=== PATIENT | female | born 2000 ===

== ENCOUNTER 2019-07-14 00:33 | Inpatient (IN) ==
[2019-07-14] MEDS ORDERED: ONDANSETRON 4 MG/2 ML VIAL IV PRN ×2 (00:49→17:47)
[2019-07-14] MEDS ORDERED: LACTATED RINGERS 500 ML IV PRN (00:49)
[2019-07-14] MEDS: LACTATED RINGERS 1,000 ML IV SCH ×3 (01:01→13:22)
[2019-07-14 01:08] LABS: Basophils % 0.2 % (0.0-0.8); Hemoglobin 13.2 GM/DL (12.0-16.0); Immature Granulocytes % 0.5 %; Immature Granulocytes Absolute 0.03 #; Lymphocytes # 1.9 10*3/uL (1.4-4.0); Lymphocytes % 32.2 % (21.3-54.2); Mean Corpuscular Volume 85.5 FL (87-102); Mean Platelet Volume 9.8 FL (9.6-12.0); Monocytes % 8.9 % (1.7-12.7); Neutrophils % 58.2 % (38.7-73.9); Platelet Count 257 T/CUMM (130-400); Red Blood Count 4.68 MC/CUMM (3.8-5.5); Red Cell Distribution Width 13.8 % (9.3-17.3); White Blood Count 5.9 T/CUMM (4-12)
[2019-07-14 01:31] LABS: Alanine Aminotransferase 14 U/L (13-56); Albumin 2.2 G/DL (3.4-5.0); Alkaline Phosphatase 189 U/L (45-117); Aspartate Amino Transferase 26 U/L (0-37); Bilirubin,Total < 0.39 MG/DL (0.2-1.0); Blood Urea Nitrogen 4 MG/DL (7-18); Calcium 8.7 MG/DL (8.5-10.1); Estimated Glom Filtration Rate 140 ML/MIN; Glucose 91 MG/DL (74-106); Total Protein 7.1 G/DL (6.4-8.3)
[2019-07-14] MEDS: BUTORPHANOL 2 MG/ML VIAL IV PRN ×2 (02:11→05:43)
[2019-07-14] MEDS ORDERED: AMPICILLIN 2,000 MG VIAL ONE (03:11)
[2019-07-14] MEDS ORDERED: AMPICILLIN INJ 2,000 MG in SODIUM CHLORIDE 0.9% 100 ML IV ONE (03:30)
[2019-07-14] MEDS: AMPICILLIN INJ 1,000 MG in SODIUM CHLORIDE 0.9% 100 ML IV SCH ×2 (07:45→12:11)
[2019-07-14] MEDS ORDERED: OXYTOCIN/LR 20 UNIT/1,000 ML BAG IV SCH (09:00)
[2019-07-14] MEDS: MEPERIDINE 50 MG/1 ML VIAL IV PRN ×2 (09:25→12:19)
[2019-07-14] MEDS ORDERED: NALOXONE 0.4 MG/ML VIAL IV PRN (14:15)
[2019-07-14] MEDS ORDERED: PROMETHAZINE 25 MG/1 ML VIAL IM PRN (14:15)
[2019-07-14] MEDS ORDERED: hydrOXYzine HCL 25 MG/1 ML VIAL IM PRN (14:15)
[2019-07-14] MEDS ORDERED: ePHEDrine 50 MG/ML AMP IV PRN (14:15)
[2019-07-14] MEDS ORDERED: CITRIC ACID/SODIUM CITRATE 30 ML UDCUP PO ONE (14:15)
[2019-07-14] MEDS ORDERED: FAMOTIDINE 20 MG/2 ML VIAL IV ONE (14:15)
[2019-07-14] MEDS ORDERED: diphenhydrAMINE 50 MG/1 ML VIAL IV PRN (14:15)
[2019-07-14] MEDS ORDERED: fentaNYL 2 MCG/ROPIV 0.2% EPID 100 ML EPIDURAL SCH (14:30)
[2019-07-14] MEDS ORDERED: ceFAZolin 2,000 MG in PREMIX 1 EACH IV ONE (15:59)
[2019-07-14] MEDS ORDERED: OXYTOCIN 10 UNIT/ML VIAL IM ONE (15:59)
[2019-07-14] MEDS ORDERED: OXYTOCIN/LR 30 UNIT/1,000 ML BAG IV ONE (15:59)
[2019-07-14] MEDS ORDERED: SODIUM CHLORIDE 0.9% 100 ML IV ONE (16:21)
[2019-07-14] MEDS ORDERED: CARBOPROST TROMETHAMINE 250 MCG/ML AMP IM ONE (16:21)
[2019-07-14] MEDS ORDERED: METHYLERGONOVINE 0.2 MG/1 ML AMP ONE (16:21)
[2019-07-14] MEDS ORDERED: miSOPROStoL 200 MCG TABLET ONE (16:21)
[2019-07-14] MEDS ORDERED: TRANEXAMIC ACID 1,000 MG/10 ML VIAL ONE (16:21)
[2019-07-14 17:39] LABS: Cord Arterial Blood HCO3 24.8 MMOL/L
[2019-07-14 17:42] LABS: Cord Venous Blood HCO3 24.4 MMOL/L; Cord Venous Blood PCO2 44.1 MMHG; Cord Venous Blood PO2 32.6 MMHG
[2019-07-14] MEDS ORDERED: ACETAMINOPHEN 325 MG TABLET PO PRN (17:47)
[2019-07-14] MEDS ORDERED: RHO(D) IMMUNE GLOBULIN 300 MCG SYRINGE IM ONE (17:47)
[2019-07-14] MEDS ORDERED: OXYTOCIN/LR 20 UNIT/1,000 ML BAG IV ONE (17:47)
[2019-07-14] MEDS ORDERED: MORPHINE 10 MG/10 ML VIAL ONE (17:56)
[2019-07-14] MEDS ORDERED: LACTATED RINGERS 1,000 ML IV SCH (18:00)
[2019-07-14] MEDS ORDERED: LIDOCAINE MPF 2% /EPI 20 ML VIAL ONE (18:00)
[2019-07-14] MEDS ORDERED: SODIUM BICARBONATE 10 MEQ/10 ML SYRINGE IV ONE (18:00)
[2019-07-14] MEDS ORDERED: ONDANSETRON 4 MG/2 ML VIAL ONE (18:00)
[2019-07-14] MEDS: ceFAZolin 1,000 MG in SYRINGE 1 EACH IV SCH (23:40)
[2019-07-15] MEDS: IBUPROFEN 800 MG TABLET PO PRN ×2 (03:32→20:03)
[2019-07-15 05:34] LABS: Basophils % 0.1 % (0.0-0.8); Hematocrit 30.6 VOL% (35.7-47.0); Hemoglobin 10.4 GM/DL (12.0-16.0); Immature Granulocytes % 0.5 %; Immature Granulocytes Absolute 0.04 #; Lymphocytes # 1.3 10*3/uL (1.4-4.0); Lymphocytes % 15.1 % (21.3-54.2); Mean Corpuscular Volume 84.8 FL (87-102); Mean Platelet Volume 9.8 FL (9.6-12.0); Monocytes % 7.6 % (1.7-12.7); Neutrophils % 76.7 % (38.7-73.9); Platelet Count 201 T/CUMM (130-400); Red Blood Count 3.61 MC/CUMM (3.8-5.5); Red Cell Distribution Width 13.9 % (9.3-17.3); White Blood Count 8.6 T/CUMM (4-12)
[2019-07-15] MEDS: DOCUSATE SODIUM 100 MG CAPSULE PO SCH ×2 (10:15→20:04)
[2019-07-15] MEDS: MULTIVITAMIN (PRENATAL) TABLET PO SCH (10:15)
[2019-07-15] MEDS: MAGNESIUM HYDROXIDE SUSP 30 ML UDCUP PO PRN ×2 (10:15→20:04)
[2019-07-15] MEDS: SIMETHICONE CHEW 80 MG TABLET PO PRN ×2 (10:15→20:04)
[2019-07-15] MEDS: ceFAZolin 1,000 MG in SYRINGE 1 EACH IV SCH (10:15)
[2019-07-15] MEDS: METOCLOPRAMIDE 10 MG TABLET PO SCH ×3 (10:15→23:40)
[2019-07-15] MEDS ORDERED: ceFAZolin 1,000 MG in SYRINGE 1 EACH IV SCH (10:30)
[2019-07-16] MEDS ORDERED: MAGNESIUM CITRATE 300 ML BOTTLE PO ONE (00:20)
[2019-07-16] MEDS: SIMETHICONE CHEW 80 MG TABLET PO PRN (02:57)
[2019-07-16] MEDS: DOCUSATE SODIUM 100 MG CAPSULE PO SCH (10:25)
[2019-07-16] MEDS: MULTIVITAMIN (PRENATAL) TABLET PO SCH (10:34)
[2019-07-16] MEDS: METOCLOPRAMIDE 10 MG TABLET PO SCH (10:34)
[2019-07-16 10:42] VITALS: BP 132/69
== END 2019-07-16 12:35 | disposition home or self-care (01) | DRG 540 ==
LOC: N.LDOUT 00:33 → N.LD 00:36 → N.OB 21:21
PROVIDERS: ADMIT Obstetrics & Gynecology; ATTEND Obstetrics & Gynecology
PROC: LDCSECT (ICD-10-PCS; 2019-07-14 16:20)

== ENCOUNTER 2021-03-08 05:56 | Inpatient (IN) ==
[2021-03-08] MEDS ORDERED: LACTATED RINGERS 500 ML IV PRN (07:12)
[2021-03-08] MEDS ORDERED: BUTORPHANOL 2 MG/ML VIAL IV PRN (07:12)
[2021-03-08] MEDS ORDERED: ONDANSETRON 4 MG/2 ML VIAL IV PRN ×2 (07:12→15:35)
[2021-03-08] MEDS ORDERED: MEPERIDINE 50 MG/1 ML VIAL IV PRN (07:12)
[2021-03-08] MEDS ORDERED: LACTATED RINGERS 1,000 ML IV SCH (07:30)
[2021-03-08 07:40] LABS: Basophils % 0.4 % (0.0-0.8); Eosinophils # 0.3 10*3/uL (0.0-0.87); Eosinophils % 3.6 % (0.00-10.9); Hematocrit 37.2 VOL% (35.7-47.0); Hemoglobin 11.7 GM/DL (12.0-16.0); Immature Granulocytes Absolute 0.08 #; Lymphocytes # 1.8 10*3/uL (1.4-4.0); Lymphocytes % 22.1 % (21.3-54.2); Mean Corpuscular HGB Conc 31.5 GM/DL (32-36); Mean Corpuscular Volume 80.9 FL (87-102); Mean Platelet Volume 9.1 FL (9.6-12.0); Monocytes % 10.1 % (1.7-12.7); Neutrophils % 62.8 % (38.7-73.9); Platelet Count 264 T/CUMM (130-400); Red Cell Distribution Width 15.7 % (9.3-17.3); White Blood Count 8.2 T/CUMM (4-12)
[2021-03-08] MEDS ORDERED: FAMOTIDINE 20 MG/2 ML VIAL IV ONE (10:21)
[2021-03-08] MEDS ORDERED: ceFAZolin 2,000 MG/50 ML DUPLEX IV ONE (10:21)
[2021-03-08] MEDS ORDERED: CITRIC ACID/SODIUM CITRATE 30 ML UDCUP PO ONE (10:21)
[2021-03-08] MEDS ORDERED: OXYTOCIN/LR 30 UNIT/1,000 ML BAG IV ONE (10:43)
[2021-03-08] MEDS ORDERED: OXYTOCIN 10 UNIT/ML VIAL IM ONE (10:43)
[2021-03-08] MEDS ORDERED: TRANEXAMIC ACID 1,000 MG/10 ML VIAL ONE (13:00)
[2021-03-08] MEDS ORDERED: SODIUM CHLORIDE 0.9% 100 ML IV ONE (13:00)
[2021-03-08] MEDS ORDERED: miSOPROStoL 200 MCG TABLET ONE (13:00)
[2021-03-08] MEDS ORDERED: METHYLERGONOVINE 0.2 MG/1 ML AMP ONE (13:01)
[2021-03-08] MEDS ORDERED: CARBOPROST TROMETHAMINE 250 MCG/ML AMP IM ONE (13:01)
[2021-03-08] MEDS ORDERED: BUPIVACAINE SPINAL 0.75% 2 ML AMP SPINAL ONE (13:31)
[2021-03-08] MEDS ORDERED: ONDANSETRON 4 MG/2 ML VIAL ONE (13:31)
[2021-03-08] MEDS ORDERED: LACTATED RINGERS 1,000 ML IV ONE (14:25)
[2021-03-08] MEDS ORDERED: KETOROLAC 30 MG/1 ML VIAL ONE (14:25)
[2021-03-08] MEDS ORDERED: DEXAMETHASONE 4 MG/1 ML VIAL ONE (14:30)
[2021-03-08 14:42] LABS: Cord Arterial Blood HCO3 26.5 MMOL/L
[2021-03-08 14:46] LABS: Cord Venous Blood HCO3 25.4 MMOL/L; Cord Venous Blood PCO2 56.9 MMHG; Cord Venous Blood PO2 < 19.0 MMHG
[2021-03-08] MEDS ORDERED: oxyCODONE/ACETAMINOPHEN 5-325 MG TABLET PO PRN ×2 (15:35)
[2021-03-08] MEDS ORDERED: RHO(D) IMMUNE GLOBULIN 300 MCG SYRINGE IM ONE (15:35)
[2021-03-08] MEDS ORDERED: BENZOCAINE 20%/MENTHOL 0.5% SPRAY 56 GM CAN TOP PRN (15:35)
[2021-03-08] MEDS ORDERED: HYDROCORTISONE 2.5% RECTAL CREAM 30 GM TUBE TOP PRN (15:35)
[2021-03-08] MEDS ORDERED: OXYTOCIN/LR 20 UNIT/1,000 ML BAG IV ONE (15:35)
[2021-03-08] MEDS ORDERED: WITCH HAZEL PADS 100/JAR TOP PRN (15:35)
[2021-03-08] MEDS ORDERED: DIPH/TET/ACEL PERT BOOSTER VACCINE 0.5 ML VIAL IM ONE (15:35)
[2021-03-08] MEDS ORDERED: MEASLES/MUMPS/RUBELLA VACCINE 0.5 ML VIAL SUBCUT ONE (15:35)
[2021-03-08] MEDS ORDERED: IBUPROFEN 800 MG TABLET PO PRN (15:35)
[2021-03-08] MEDS ORDERED: BISACODYL 10 MG SUPP RECTAL PRN (15:35)
[2021-03-08] MEDS ORDERED: LANOLIN 50% CREAM 0.3 OZ TUBE TOP PRN (15:35)
[2021-03-08 15:50] LABS: Bacteria,Urine Occasional /HPF (Few); Bilirubin,Urine Negative (Negative); Blood, Urine Negative (Negative); Glucose,Urine (UA) Negative (Negative); Ketones,Urine 80 mg/dL (Negative); Mucus,Urine Moderate /LPF (Occasional); Nitrite,Urine Negative (Negative); Protein,Urine 30 MG/DL; Squamous Epithelial Cell,Urine Occasional /HPF (0-10); Urine Appearance CLEAR (Clear); Urine Color Yellow (Yellow); Urine Specific Gravity 1.021 (1.001-1.035)
[2021-03-08] MEDS ORDERED: ACETAMINOPHEN 500 MG TABLET PO SCH (18:00)
[2021-03-08] MEDS ORDERED: KETOROLAC 30 MG/1 ML VIAL IV SCH (21:00)
[2021-03-08] MEDS: ASCORBIC ACID 500 MG TABLET PO SCH (21:21)
[2021-03-08] MEDS: DOCUSATE SODIUM 100 MG CAPSULE PO SCH (21:22)
[2021-03-08] MEDS: CHOLECALCIFEROL 5,000 UNIT TABLET PO SCH (21:22)
[2021-03-08] MEDS: ACETAMINOPHEN 325 MG TABLET PO PRN (23:10)
[2021-03-09 05:40] LABS: Basophils % 0.2 % (0.0-0.8); Eosinophils % 0.1 % (0.00-10.9); Hematocrit 35.2 VOL% (35.7-47.0); Hemoglobin 11.3 GM/DL (12.0-16.0); Immature Granulocytes % 0.6 %; Immature Granulocytes Absolute 0.08 #; Lymphocytes # 1.8 10*3/uL (1.4-4.0); Lymphocytes % 14.4 % (21.3-54.2); Mean Corpuscular HGB Conc 32.1 GM/DL (32-36); Mean Corpuscular Volume 81.1 FL (87-102); Mean Platelet Volume 9.3 FL (9.6-12.0); Monocytes % 9.5 % (1.7-12.7); Neutrophils % 75.2 % (38.7-73.9); Platelet Count 270 T/CUMM (130-400); Red Blood Count 4.34 MC/CUMM (3.8-5.5); Red Cell Distribution Width 15.1 % (9.3-17.3); White Blood Count 12.6 T/CUMM (4-12)
[2021-03-09 06:08] VITALS: BP 120/68
[2021-03-09] MEDS ORDERED: ASPIRIN 325 MG TABLET PO SCH (09:00)
[2021-03-09] MEDS: FAMOTIDINE 20 MG TABLET PO SCH (09:30)
[2021-03-09] MEDS: ASCORBIC ACID 500 MG TABLET PO SCH ×2 (09:30→20:41)
[2021-03-09] MEDS: ZINC GLUCONATE 50 MG TABLET PO SCH (09:30)
[2021-03-09] MEDS: DOCUSATE SODIUM 100 MG CAPSULE PO SCH ×2 (09:30→20:42)
[2021-03-09] MEDS: CHOLECALCIFEROL 5,000 UNIT TABLET PO SCH ×2 (09:31→20:40)
[2021-03-09] MEDS: ACETAMINOPHEN 325 MG TABLET PO PRN (20:40)
[2021-03-09] MEDS: CETIRIZINE 10 MG TABLET PO SCH (20:42)
[2021-03-09] MEDS ORDERED: ASPIRIN CHEW 81 MG TABLET PO ONE (21:16)
[2021-03-10] MEDS ORDERED: SIMETHICONE CHEW 80 MG TABLET PO PRN (01:23)
[2021-03-10] MEDS: ASCORBIC ACID 500 MG TABLET PO SCH (08:26)
[2021-03-10] MEDS: CETIRIZINE 10 MG TABLET PO SCH (08:28)
[2021-03-10] MEDS: CHOLECALCIFEROL 5,000 UNIT TABLET PO SCH (08:28)
[2021-03-10] MEDS: ZINC GLUCONATE 50 MG TABLET PO SCH (08:28)
[2021-03-10] MEDS: FAMOTIDINE 20 MG TABLET PO SCH (08:28)
[2021-03-10] MEDS: DOCUSATE SODIUM 100 MG CAPSULE PO SCH (08:29)
[2021-03-10] MEDS ORDERED: ASPIRIN EC 81 MG TABLET PO SCH (09:00)
== END 2021-03-10 16:17 | disposition home or self-care (01) | DRG 540 ==
LOC: N.LD 05:56
PROVIDERS: ADMIT Obstetrics & Gynecology; ATTEND Obstetrics & Gynecology
PROC: LDCSECT (ICD-10-PCS; 2021-03-08 15:00)